=== PATIENT | male | born 1950 | race Caucasian/White ===

== ENCOUNTER 2020-10-03 07:30 | Outpatient (CLI) | payer MEDICARE, OTHER | END 2020-10-03 23:59 | disposition home or self-care (01) | LOC: CVU 07:30 → CFH 23:59 | PROVIDERS: ATTEND Internal Medicine Cardiovascular Disease | DX: Z13.6 Encounter for screening for cardiovascular disorders (principal); I77.819 Aortic ectasia, unspecified site; E78.00 Pure hypercholesterolemia, unspecified; I77.810 Thoracic aortic ectasia; I06.1 Rheumatic aortic insufficiency; I06.8 Other rheumatic aortic valve diseases | CPT/HCPCS: 75571; 93306; 93356 ==